=== PATIENT | male | born 1995 | race Hispanic/Latino ===

== ENCOUNTER 2017-11-15 01:46 | Emergency (ER) | payer BC ==
--- NOTE | 2017-11-15 01:59 | ED PDOC ---
HPI: Wound Care - HPI Time Seen by Provider: 11/15/17 01:56 Chief Complaint (Provider): laceration to right arm History Per: Patient Additional Complaint(s): 22-year-old right-hand dominant male presents with laceration to right arm. Patient tripped and fell accidentally hitting right arm against the metal hinge of a door. Patient denies head injury or loss of consciousness. Tetanus is up-to -date. No active bleeding noted upon arrival. Past Medical History Reviewed: Historical Data, Nursing Documentation, Vital Signs - Medical History PMH: No Chronic Diseases - Family History Family History: States: No Known Family Hx - Living Arrangements Living Arrangements: With Friends/Others - Social History Current smoker - smoking cessation education provided: No Alcohol: None Drugs: Denies - Immunization History Hx Tetanus Toxoid Vaccination: Yes - Allergies Allergies/Adverse Reactions: Allergies Allergy/AdvReac Type Severity Reaction Status Date / Time No Known Allergies Allergy Verified 11/15/17 02:02 Review of Systems ROS Statement: Except As Marked, All Systems Reviewed And Found Negative Musculoskeletal: Positive for: Other (right arm laceration) Physical Exam - Reviewed Nursing Documentation Reviewed: Yes Vital Signs Reviewed: Yes - Physical Exam Appears: Positive for: Well, Non-toxic, No Acute Distress Skin: Negative for: Rash Eye Exam: Positive for: Normal appearance Extremity: Positive for: Other (2 cm laceration to ulnar aspect of right forearm with macerated wound borders, no active bleeding, moderate surrounding soft tissue swelling, normal sensation surrounding wound, normal distal sensation) Neurologic/Psych: Positive for: Alert, Oriented - ECG O2 Sat by Pulse Oximetry: 98 Pulse Ox Interpretation: Normal Procedure: Wound Repair - Time Performed Time Performed: 02:57 - Time Out Time Out: Side verified, Site verified, Patient ID confirmed, Sterile procedures obs. - Consent Obtained Consent obtained: Verbal - Performed by Performed by: Mid-level Provider - Indications Indication(s):: Laceration - Location Location:: Right, Forearm Shape:: Other (irregular shape) Dimensions Length cm: 2 - Anesthetic Technique Anesthetic Technique: Local Local/Regional Anesthetic:: Lidocaine 1% w/epi - Complexity Complexity:: Simple (one layer) - Wound repair method Sutures:: Technique (wound margins revised then 3 simple interrupted 5-0 prolene sutures were used to repair wound) - Muscle repiar layer closed with Muscle repair layer closed with:: Wound well approximated, Abx ointment applied , Dressing applied, Tetanus up to date - Complications Complications: none - Patient tolerated procedure Patient Tolerated Procedure:: Well Medical Decision Making Medical Decision Makin22 year old with right arm laceration Plan: Lac repair See procedure note. Wound care instructions given. Disposition - Clinical Impression Clinical Impression: Arm laceration - Patient ED Disposition Is Patient to be Admitted: No Counseled Patient/Family Regarding: Diagnosis, Need For Followup - Disposition Referrals: [facility] [Outside] Disposition: Routine/Home Disposition Time: 02:50 Condition: STABLE Additional Instructions: KEEP WOUND CLEAN AND DRY. OVER THE COUNTER TYLENOL OR ADVIL FOR PAIN NEEDED. ICE AFFECTED AREA WITHOUT GETTING WOUND WET. WOUND CHECK 2-3 DAYS. SUTURE REMOVAL 10 DAYS. Instructions: Laceration Repair With Stitches (DC)
[2017-11-15 02:02] VITALS: BP 121/77; PULSE 67; RESP 17; TEMP 98; O2SAT 98
[2017-11-15] MEDS ORDERED: Lidocaine 1% w Epi 1:100,000 Inj INJ STA (02:15)
[2017-11-15] MEDS ORDERED: Lidocaine 1% w Epi 1:100,000 Inj ONE (02:21)
[2017-11-15] MEDS ORDERED: Povidone Iodine Topical 10% Sol ONE (02:38)
== END 2017-11-15 02:55 | disposition home or self-care (01) ==
LOC: H.ER 01:46
DX: S41.119A Laceration without foreign body of unspecified upper arm, initial encounter (principal); W26.8XXA Contact with other sharp object(s), not elsewhere classified, initial encounter; Y92.89 Other specified places as the place of occurrence of the external cause